=== PATIENT | male | born 1985 | race Two or more races ===

== ENCOUNTER → 2018-09-04 | Outpatient (CLI) | payer OTHER ==
--- NOTE | 2018-09-04 14:36 | RAD ---
Examination: Bilateral ankle brachial indices HISTORY: History of coronary artery disease COMPARISON: None available FINDINGS: The right arm pressure is 135 mm Hg. Left arm pressure is 127 mmHg. Right posterior tibialis artery pressure 142 mmHg. Dorsalis pedis artery pressure 152 mmHg. Left posterior tibialis artery pressure is 142 mmHg. Left dorsalis pedis artery pressure is 140 mm Hg. The right ankle-brachial index is 1.12. The left ankle-brachial index 1.05. Impression: Normal ankle-brachial indices. Electronically signed by: Stna Salguero MD (09/04/2018 2:33 PM) [id number]
== END | disposition home or self-care (01) ==
LOC: US 14:17
PROVIDERS: ATTEND Family Medicine
DX: I25.10 Atherosclerotic heart disease of native coronary artery without angina pectoris (principal)
CPT/HCPCS: 93922